=== PATIENT | female | born 1965 | race Caucasian/White ===

== ENCOUNTER 2021-02-24 11:02 | Outpatient (CLI) | payer OTHER, SELFPAY ==
--- NOTE | 2021-02-24 11:11 | MM_ITS ---
WS: [id number] BILATERAL DIGITAL SCREENING MAMMOGRAPHY WITH CAD CLINICAL INFORMATION: SCREENING HISTORY: Screening mammogram. No current complaints. COMPARISON: January 25, 2018 TECHNIQUE: Bilateral CC and MLO views. FINDINGS: Scattered fibroglandular densities bilaterally. No suspicious focal mass, asymmetry, calcifications, or architectural distortion. No evidence of malignancy. MM/[place] [id number] IMPRESSION: BI-RADS: 1-Negative FOLLOW UP: 1 Year Follow-up Recommend return to annual screening mammography.
== END 2021-02-24 11:03 | disposition home or self-care (01) ==
LOC: RADSHAW 11:08
PROVIDERS: Family Provider Nurse Practitioner; PCP Nurse Practitioner; Visit Provider Nurse Practitioner
DX: Z12.31 Encounter for screening mammogram for malignant neoplasm of breast (principal)
CPT/HCPCS: 77067

== ENCOUNTER → 2023-11-08 15:26 | Outpatient (BNVA) | payer OTHER, SELFPAY | PROVIDERS: Family Provider Nurse Practitioner; PCP Nurse Practitioner Family; Referring Provider Nurse Practitioner Family; Visit Provider Surgery | DX: R10.9 Unspecified abdominal pain (principal); Z51.81 Encounter for therapeutic drug level monitoring; Z79.1 Long term (current) use of non-steroidal anti-inflammatories (NSAID) | CPT/HCPCS: 36415; 80048; 80076; 85025 ==

== ENCOUNTER 2023-11-21 07:49 | Outpatient (CLI) | payer OTHER, SELFPAY ==
--- NOTE | 2023-11-21 08:00 | US_ITS ---
WS: [id number] RIGHT UPPER QUADRANT ULTRASOUND HISTORY: RUQ pain COMPARISON: None available. Liver: 14.0 cm in length. Normal size liver and echogenicity. No bile duct dilatation or mass. Portal Vein: Normal hepatopetal flow with monophasic waveform. Gallbladder: Normally distended gallbladder with no stones or wall thickening. CBD: 0.3 cm Pancreas: Normal size and echogenicity. Right kidney: 10.2 cm in length. Normal size kidney with no hydronephrosis. Simple cyst mid kidney 2. 3 x 2.5 x 2.5 cm. Aorta and IVC: Unremarkable abdominal aorta and IVC. No ascites. IMPRESSION: 1. Normal gallbladder. 2. No bile duct dilatation. 3. Simple cyst RIGHT kidney.
== END 2023-11-21 07:50 | disposition home or self-care (01) ==
LOC: RAD 07:50
PROVIDERS: Family Provider Nurse Practitioner; PCP Nurse Practitioner Family; Visit Provider Surgery
DX: R10.11 Right upper quadrant pain (principal); N28.1 Cyst of kidney, acquired
CPT/HCPCS: 76705

== ENCOUNTER → 2024-01-24 13:08 | Outpatient (BNVA) | payer OTHER, SELFPAY | PROVIDERS: Family Provider Nurse Practitioner; PCP Nurse Practitioner Family; Referring Provider Nurse Practitioner Family; Visit Provider Internal Medicine | DX: R07.9 Chest pain, unspecified (principal); I45.10 Unspecified right bundle-branch block | CPT/HCPCS: 93005 ==

== ENCOUNTER 2024-02-21 07:04 | Outpatient (CLI) | payer OTHER, SELFPAY ==
--- NOTE | 2024-02-21 07:15 | USCV_ITS ---
Xiomara Dorado Age: 58 Gender: F : 1965 Exam Date: 02/21/2024 07:19 Ordering Phys: Pramod Mays M.D ([email or web address]) Technologist: Exam Location: [facility] [place]: chest pain BP: 120 / 70 HR: 58 Rhythm: Sinus Technical Quality: Adequate MEASUREMENTS (Male / Female) Normal Values 2D ECHO LV Diastolic Diameter PLAX 4.3 cm 4.2 - 5.9 / 3.9 - 5.3 cm IVS Diastolic Thickness 1.0 cm 0.6 - 1.0 / 0.6 - 0.9 cm IVS Systolic Thickness 1.5 cm LVPW Diastolic Thickness 0.8 cm 0.6 - 1.0 / 0.6 - 0.9 cm LVPW Systolic Thickness 1.2 cm LVOT Diameter 2.1 cm LV Ejection Fraction 2D Teich 69.8 % LV Ejection Fraction MOD 2C 74.2 % LV Ejection Fraction 2C AL 75.0 % LA Diameter 3.1 cm RA Systolic Volume 4C AL 43.9 ml RA Systolic Volume 4C MOD 42.5 ml Aorta at Sinotubular Diameter 2.8 cm IVC Diameter 1.8 cm M-MODE LA Ao Ratio MM 1.5 AV Cusp Separation MM 2.3 cm DOPPLER AV Peak Velocity 139.0 cm/s LVOT Peak Velocity 127.0 cm/s AV Area Cont Eq vti 3.0 cm squared AV Area Cont Eq pk 3.1 cm squared MV Area PHT 3.3 cm squared Mitral E to A Ratio 1.0 TV Peak Velocity 199.5 cm/s TR Peak Velocity 239.0 cm/s TR Peak Gradient 22.8 mmHg TV Peak E Velocity 81.0 cm/s Right Atrial Pressure 3.0 mmHg Pulmonary Artery Systolic Pressu 25.8 mmHg PV Peak Velocity 91.0 cm/s FINDINGS Left Ventricle Left ventricle is normal in size. LV systolic function is normal with EF of 60 to 65% . No regional wall motion abnormalities are seen. Right Ventricle Normal in size and function Right Atrium Normal in size Left Atrium Normal in size Mitral Valve Structurally normal mitral valve. Mild mitral regurgitation. Aortic Valve Structurally normal aortic valve. No significant stenosis or regurgitation. Tricuspid Valve Mild tricuspid regurgitation. RVSP is normal. Pulmonic Valve Not well visualized Pericardium Normal Aorta Normal in size IVC Appears to be normal CONCLUSIONS LV systolic function is normal with EF of 60-65% Mild mitral regurgitation Mild tricuspid regurgitation No comparison studies are available. Pramod Mays MD (Electronically Signed) Final Date: 25 February 2024 22:35 S
== END 2024-02-21 07:05 | disposition home or self-care (01) ==
PROVIDERS: Family Provider Nurse Practitioner; PCP Nurse Practitioner Family; Visit Provider Internal Medicine
DX: R06.02 Shortness of breath (principal)
CPT/HCPCS: 93306

== ENCOUNTER 2024-03-07 12:01 | Outpatient (CLI) | payer OTHER, SELFPAY ==
--- NOTE | 2024-03-07 12:09 | ECG_ITS ---
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 Interpretive Statements NAME OF STUDY: TREADMILL STRESS TEST INDICATION: CP/SOB, PROCEDURE: At the baseline, the patient's blood pressure was 146/70 with a heart rate of 78. The baseline electrocardiogram showed normal sinus rhythm with normal ST-Ts. Right bundle branch block pattern. Some nonspecific T wave changes. The patient exercised for 5 minutes and 31 seconds on a standard Dick protocol. Patient attained a maximum heart rate of 145 beats per minute(90% of the maximum predicted heart rate) with a blood pressure at the peak exercise of 178/88 mm Hg. The EKG at the peak exercise revealed no significant changes. Patient did not have any chest pain or any significant cardiac arrhythmias with the exercise During the recovery phase, there were no new changes. Blood pressure at the end of the recovery phase was 146/66 mm Hg with a heart rate of 93 per minute. CONCLUSION: 1. No significant EKG changes with the treadmill exercise. 2. No exercise-induced chest pain or cardiac arrhythmia 3. Slightly impaired exercise tolerance, attained a maximum of 7.0 METs Electronically Signed On 03-09-2024 14:47:47 CDT by Zulma Muniz M.D. [email or web address] [email or web address] [email or web address] system [id number]
[2024-03-07 12:10] VITALS: BMI 29.3
[2024-03-07 12:37] VITALS: BP 146/66; PULSE 92
== END 2024-03-07 12:02 | disposition home or self-care (01) ==
PROVIDERS: Family Provider Nurse Practitioner; PCP Nurse Practitioner Family; Visit Provider Internal Medicine
DX: R06.09 Other forms of dyspnea (principal); R07.9 Chest pain, unspecified
CPT/HCPCS: 93017

== ENCOUNTER 2024-05-07 14:11 | Outpatient (CLI) | payer OTHER, SELFPAY ==
[2024-05-07 15:36] LABS: Basophils % 0.3 %; Eosinophils # 0.1 10^3/uL (0.0-0.8); Hematocrit 42.6 % (36-47); Lymphocytes # 2.8 10^3/uL (0.8-4.8); Lymphocytes % 31.4 %; Mean Corpuscular HGB Conc 33.3 g/dL (30-55); Mean Corpuscular Volume 95.9 fl (85-98); Mean Platelet Volume 10.2 fL (7.4-10.4); Monocytes # 0.6 10^3/uL (0.2-0.9); Monocytes % 6.6 %; Neutrophils # 5.43 10^3/uL (1.8-7.7); Neutrophils % 60.4 %; Nucleated Red Blood Cells % 0 %; Platelet Count 352 10^3/cmm (157-399); Red Blood Count 4.44 10^6/uL (3.85-5.65); Red Cell Distribution Width 12.7 % (12.1-15.1); White Blood Count 8.99 10^3/uL (3.29-11.43)
[2024-05-07 16:11] LABS: Blood Urea Nitrogen 18 mg/dL (6-20); Calcium 9.5 mg/dL (8.5-10.5); Carbon Dioxide 28 mmol/L (22-29); Chloride 103 mmol/L (98-107); Glomerular Filtration Rate 64.1 mL/min (90-130); Glucose 89 mg/dL (65-115); Osmolality Calculated 293 mOsm/kg (285-295); Sodium 141 mmol/L (136-145)
== END 2024-05-07 14:12 | disposition home or self-care (01) ==
LOC: LAB 14:12
PROVIDERS: Family Provider Nurse Practitioner; PCP Nurse Practitioner Family; Visit Provider Nurse Practitioner Family
DX: R06.09 Other forms of dyspnea (principal); R07.9 Chest pain, unspecified
CPT/HCPCS: 36415; 80048; 85025

== ENCOUNTER → 2024-05-14 05:47 | Outpatient (CLI) | payer OTHER, SELFPAY ==
[2024-05-14] VITALS (13 sets, daily range): BP systolic 92–136; BP diastolic 59–77; PULSE 55–69; RESP 12–18; TEMP 36.6; O2SAT 93–99; BMI 28.3
--- NOTE | 2024-05-14 06:00 | XACV_ITS ---
Exam Room: 2 Ht: 163 cm Wt: 75 kg BSA: 1.86 m2 Gender: Female : 1965 Any Known Allergies: No known allergies Exam Priority: Routine Procedure(s): Procedure Description: Diagnostic procedure Procedure Description: Left Heart Catheterization Procedure Description: Left ventriculography Procedure Description: Coronary Angiography Diagnostic Cath Status: Elective Diagnostic Findings * No significant disease noted in the Left Main, Left Anterior Descending, Right, or Circumflex coronary arteries. * Slow flow noted in the RCA. * Coronary angiography shows right dominance. Conclusions 1. No significant disease noted in the Left Main, Left Anterior Descending, Right, or Circumflex coronary arteries. 2. Normal left ventricular systolic function. Ejection fraction of 55%. Recommendations * Symptoms likely secondary to microvascular disease. We will initiate isosorbide mononitrate. * Out patient cardiology follow up in 2-4 weeks. Ventriculography Ejection Fraction: 55.0 % Pressures Phase:Rest AO : 92 / 66 ( 80 ) @ 9:01:00 AM 140 / 80 ( 106 ) @ 9:10:00 AM 141 / 81 ( 107 ) @ 9:10:00 AM LV : 134 / -11 / 14 @ 9:09:00 AM 137 / 4 / 28 @ 9:10:00 AM 139 / 4 / 27 @ 9:10:00 AM Valves Phase:DefaultPhase AV : 0.0 @ 8:17:36 AM 0.0 @ 8:17:36 AM AV Mean Gradient: 0.0 @ 8:17:36 AM Clinical Evaluation EBL: 5mL-10mL Procedural Details Procedure Consent Obtained. Current Diagnosis : Chest Pain. Pre-Procedure Time Out. Identified patient by full name and date of as verbalized by the patient/guarantor. Does the consent match the physician's order: Yes. Accurate & Complete Informed Consent: Yes. Inpatient/Outpatient History & Physical on Chart: Yes. If H&P is completed, is and addenduem needed: No; If yes, is the addendum complete: N/A. Visualize and Verify Site with Patient/Guarantor: N/A. Relevant Radiology Images available: Yes. Pre-op teaching completed and patient verbalized understanding. The risks, benefits, and alternatives of sedation and/or procedure were discussed by physician. The patient agrees to continue. Procedure started. [facility] Clinical Fraility Score: 3: Managing Well. 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 Chest Pain Symptom Assessment: Atypical Angina. Correct patient, site and procedure confirmed by cath team. Current diagnosis: Chest Pain. PERRLA. Strong, equal hand registered public surveyor bilaterally. Lungs clear x 5 lobes. IV Site on Arrival: 20 gauge in the right anticubital. IV Fluids: 0.9% NaCl at KVO. 0 mL infused prior to equipment operator/laborer. Pre Procedural Pulses: bilateral dorsalis pedis was 3+. Pre Procedural Pulses: bilateral posterior tibial was 2+. Pre Procedural Pulses: bilateral radial was 3+. Oxygen started at 2liters/min via nasal canula. right groin was prepped with chloroprep then draped in the usual sterile fashion. right radial was prepped with chloroprep then draped in the usual sterile fashion. Baseline sample Acquired. HR: 59 BPM. Physician arrived. Physician scrubbed in. Immediate Pre-Procedure Time Out. Correct Patient: Yes; Correct Procedure: Yes; Correct Site: Yes; Correct Patient Position: Yes; Correct Supplies: Yes; Dried Flammable Prep: Yes; Blood Products Available: N/A;. Lidocaine 1% infiltrated to the right radial. Arterial access obtained. A 5 croatian TIG catheter in over wire. Multiple views taken of right coronary artery. Catheter removed over the exchange wire. A 5 croatian JL3.5 catheter in over wire. Multiple views taken of left coronary artery. Catheter removed over the exchange wire. A 5 croatian Angled Pig catheter in over wire. EDP Sample taken: LV 134/-12,14; HR: 61 BPM; SpO2: 99%. LV gram performed in CHAVARRIA @ 10 mL/second for a total of 30 mL. EDP Sample taken: LV 137/4,28; HR: 61 BPM; SpO2: 99%. Pullback taken: LV 139/4,27; AO 140/80(106); Mean: 0mmHg, Peak to Peak: 0mmHg, SEP: 7sec/min; HR: 63 BPM; SpO2: 99%. Catheter removed over the exchange wire. A TR Band was successful obtaining hemostatsis at the Right Radial artery insertion site. Post Procedure: Pulses reassessed and unchanged. PERRLA. Strong, equal hand registered public surveyor bilaterally. No VTE prophylaxis required. Medication's Wasted: Lidocaine 1% = 18 mL. Medication's Wasted: Nitro = 49.8 mcg. Total IV fluids: 50 mL. Vital chart was stopped. Post-op diagnosis: Non-obstructive CAD. Complications: None. Estimated blood loss: 5mL-10mL. Responsiveness - Normal response to verbal stimuli; alert and oriented, PERRLA. Airway - Unaffected, no intervention required; spontaneous ventilation. Circulation: W/N/L, pulses unchanged. Nausea/Vomiting: No. Procedure completed. Patient transferred by wheelchair to CPRU. Access Site Site: Right Radial artery Sheath Size: 6 Fr Hemostasis Method: TR Band Hemostasis Success: Successful Procedure Medications Start: 7:49 AM Stop: 7:49 AM Medication: Versed Amount: 1 mg Route: I.V. Start: 7:49 AM Stop: 7:49 AM Medication: Fentanyl Amount: 50 mcg Route: I.V. Start: 7:54 AM Stop: 7:54 AM Medication: Versed Amount: 1 mg Route: I.V. Start: 7:56 AM Stop: 7:56 AM Medication: Nitrogylcerin Amount: 200 mcg Route: I.A. Start: 8:00 AM Stop: 8:00 AM Medication: Heparin Amount: 5000 units Route: I.V. Start: 8:09 AM Stop: 8:09 AM Medication: Fentanyl Amount: 50 mcg Route: I.V. I, the attending physician, have reviewed and verified all procedure medications. Yes, all medications given per verbal order History/Risk Factors Hypertension: No Dyslipidemia: No Peripheral Arterial Disease (PAD): No Myocardial Infarction (VA): No Obesity: No Renal Disease: No Tobacco Use: Never Prior Interventions PCI: No CABG: No Valve Surgery: No Report Signatures Finalized by Pramod Mays MD on 05/14/2024 12:07 PM
[2024-05-14] MEDS: diphenhydrAMINE 50 mg Capsule PO (06:05)
--- NOTE | 2024-05-14 07:40 | W.PM.OPSUD ---
Surgery/Procedure H&P Update DATE OF PROCEDURE: May 14, 2024 DATE H&P PERFORMED: 04/29/24 H&P UPDATE INFORMATION: I have reviewed H&P completed within last 30 days, I have examined patient prior to procedure and No changes to prior documentation PREOP DIAGNOSIS: CCS class 2-3 angina PRIMARY INDICATION FOR PROCEDURE: CCS class 2-3 angina PLANNED PROCEDURE: Operation Date: 05/14/24 07:00 Proposed Procedures p Cardiac Catheterization(Left) - Pramod Mays M.D Possible percutaneous coronary intervention PATIENT REASSESSED PRIOR TO SEDATION, WITH NO CHANGE NOTED: Yes PHYSICAL EXAM: alert, oriented x 3, clear to auscultation bilaterally and regular rate & rhythm AIRWAY EVAL/ANESTHESIA PLAN: normal airway, ASA III, Local Anesthesia, Risks, benefits & alternatives of sedation and/or procedure discussed and Patient agrees to continue as planned ADDITIONAL INFORMATION: Moderate sedation
--- NOTE | 2024-05-14 08:20 | SUR.PHASEII ---
Received the patient back from the veterinary laboratory diagnostician via wheelchair s/p Diagnostic [facility]. Patient ambulated to the cot without difficulty. A & 0 x 3. air sampling and monitoring placed and vital signs obtained. TR band intact to the right wrist. No bleeding or hematoma noted. Palpable radial pulse. No other assessment changes noted from pre cath assessment. Family at bedside. No concerns voiced at this time.
--- NOTE | 2024-05-14 09:00 | SUR.PHASEII ---
Letting the air out of the TR band per protocol. No other changes noted at this time. Spouse remains at bedside.
--- NOTE | 2024-05-14 10:36 | SUR.PHASEII ---
TR band off per protocol. Site soft with no bleeding or hematoma noted. area cleansed with warm water and patted dry. A large band aid when applied to the site and loosely secured with coban. Post radial activity restrictions explained to the patient and her spouse with their understanding verbalized. No other changes at this time.
--- NOTE | 2024-05-14 11:45 | SUR.PHASEII ---
Patient discharged home via wheelchair with spouse driving.
== END | disposition home or self-care (01) ==
PROVIDERS: PCP Nurse Practitioner Family; Visit Provider Internal Medicine
DX: R07.89 Other chest pain (principal); R94.39 Abnormal result of other cardiovascular function study
CPT/HCPCS: 36415; 93458; 96374; 99152; 99153; C1769; C1887; C1894; J1644; J2250; J3010; J3490; J7030; Q0163; Q9967